=== PATIENT | female | born 1950 | race Caucasian/White ===

== ENCOUNTER 2022-01-17 11:56 | Emergency (ER) | payer MEDICARE, OTHER, SELFPAY ==
[2022-01-17] VITALS (11 sets, daily range): BP systolic 113–193; BP diastolic 85–108; PULSE 57–83; RESP 14–24; TEMP 36.6; O2SAT 90–100
--- NOTE | ~2022-01-17 | CT_ITS ---
EXAMINATION: CT brain wo con DATE: 01/17/2022 12:08 INDICATION: Cerebrovascular accident. Right facial weakness. TECHNIQUE: Computed tomography (CT) of the head was performed without intravenous contrast. The mA wa s adjusted according to patient size. Iterative reconstruction technique was employed. The dose-lengt h product was 605.33 mGy-cm. COMPARISON: None FINDINGS: There is no intracranial hemorrhage, acute infarction, or abnormal intracranial mass lesion . The ventricles are normal in size. There are likely changes of ocular lens replacement surgeries. T he paranasal sinuses are clear. The mastoid air cells are normal. IMPRESSION: 1. Normal brain. I called this result to Michelle in the emergency department. Reviewed, dictated and finalized at location A.
--- NOTE | ~2022-01-17 | XR_ITS ---
EXAMINATION: XR chest 1V portable INDICATION: Facial droop TECHNIQUE: Portable AP chest at 1237 hours COMPARISON: 07/17/2015 FINDINGS: The lungs are free of acute opacities. No pleural effusion or pneumothorax. The cardiomedia stinal silhouette is normal. IMPRESSION: 1. No acute cardiopulmonary abnormality. Reviewed, dictated and finalized at location A.
--- NOTE | 2022-01-17 12:03 | ECG_ITS ---
Measurements Intervals [place] Rate: 80 P: 64 WA: 311 QRS: -6 QRSD: 94 T: 13 QT: 403 QTc: 465 Interpretive Statements SINUS RHYTHM WITH FIRST DEGREE AV BLOCK SUPRAVENTRICULAR BIGEMINY LEFT VENTRICULAR HYPERTROPHY WITH ST-T CHANGE CONSIDER INFERIOR INFARCT, AGE INDETERMINATE ABNORMAL ECG NO PREVIOUS ECG AVAILABLE FOR COMPARISON Electronically Signed On 01-17-2022 14:35:34 CDT by Dony Matson D.O.
[2022-01-17 12:20] LABS: Glucose Point of Care 106 mg/dl (65-105)
[2022-01-17 12:29] LABS: Basophils Absolute Auto 0.1 K/mm3 (0.0-0.1); Eosinophils Absolute Auto 0.3 K/mm3 (0-0.3); Eosinophils Percent Auto 3.5 % (0-4.4); Hematocrit 44.5 % (37.0-47.0); Hemoglobin 14.5 g/dL (12.0-15.0); Immature Granulocyte Absolute 0.02 K/mm3 (0.00-0.031); Immature Granulocyte Percent A 0.3 % (0-0.5); Lymphocytes Absolute Auto 1.64 K/mm3 (0.9-3.2); Lymphocytes Percent Auto 21.2 % (18.3-44.2); Mean Corpuscular HGB Conc 32.6 g/dl (32-36); Mean Corpuscular Hemoglobin 31.4 pg (26-34); Mean Corpuscular Volume 96.3 fl (80-100); Mean Platelet Volume 10.2 fl (7.4-10.4); Monocytes Absolute Auto 0.8 K/mm3 (0.1-0.6); Neutrophils Absolute Auto 4.9 K/mm3 (1.3-6.7); Platelet Count Result 355 k/mm3 (150-375); Red Blood Count 4.62 M/mm3 (4.2-5.4); Red Cell Distribution Width 14.6 % (11.5-14.5); White Blood Count 7.7 K/mm3 (4.5-10.0)
[2022-01-17 12:38] LABS: Alanine Aminotransferase 30 U/L (6-35); Albumin Level 4.5 g/dL (3.5-5.1); Alkaline Phosphatase 136 U/L (38-126); Anion Gap 14 mmol/L (8-16); Aspartate Amino Transferase 35 U/L (14-36); Bilirubin,Total 0.6 mg/dL (0.2-1.3); Blood Urea Nitrogen 21 mg/dL (7-17); Calcium 9.4 mg/dL (8.4-10.2); Carbon Dioxide 30 mmol/L (22-30); Chloride 98 mmol/L (98-107); Estimated CRCL calculation 57 ml/min; Estimated Glomerular Filt Rate 55; Glucose 109 mg/dL (65-110); Potassium 3.7 mmol/L (3.4-5.0); Sodium 142 mmol/L (137-145)
[2022-01-17 12:40] LABS: Partial Thromboplastin Time 24.7 SECONDS (22.3-36.8); Prothrombin Time 12.7 Seconds (11.1-14.7)
[2022-01-17 12:50] LABS: Troponin I < 0.012 ng/mL (0.000-0.034)
--- NOTE | 2022-01-17 13:51 | ED.NEUROSD ---
HPI - Neuro Symptoms/Deficit General Chief Complaint: Suspected CVA Stated Complaint: walk up with facial droop Time Seen by Provider: 01/17/22 12:38 History of Present Illness HPI Narrative: 71-year-old female presenting to the emergency department for evaluation of right-sided facial numbness. Patient noticed this when she woke up this morning. Patient has no prior history of CVA. Patient denies any other associated numbness or weakness. Related Data Home Medications Medication Instructions Recorded Confirmed biotin 10,000 mcg capsule mcg PO 04/25/19 11/11/21 cyanocobalamin (vitamin B-12) 5,000 mcg sublingual DAILY 04/25/19 11/11/21 5,000 mcg sublingual tablet (Vitamin B-12) ranibizumab 0.3 mg/0.05 mL 0.3 mg intravitreal Q10W 02/05/21 11/11/21 intravitreal solution for injection (Lucentis) Lactobacills gasseri-Bifidobac cap PO ONCE PRN 02/06/21 11/11/21 bifidum,longum 1.5 billion cell capsule ([employer]) calcium carbonate 500 mg-vitamin 1 tablet PO BID 02/06/21 11/11/21 D3 5 mcg (200 unit) tablet krill oil 500 mg capsule mg PO ONCE 02/06/21 11/11/21 multivitamin 1 tablet PO DAILY 02/06/21 11/11/21 vit Q50-uzxyqxjhv factor-folic tablet PO ONCE 02/06/21 11/11/21 acid cmb#2 500 mcg-20 mg-800 mcg tablet (Intrinsi F00-[id number]) vit C 250 mg-vit E 90 mg-zinc 40 1 tablet PO BID 02/06/21 11/11/21 mg-copper 1 qz-fkltqv-hosagc capsule (PreserVision AREDS-2) Allergies Allergy/AdvReac Type Severity Reaction Status Date / Time Crab Allergy Severe SWOLLEN Uncoded 01/17/22 12:29 FACE STERI STRIP Allergy Unknown Other Uncoded 01/17/22 12:29 Review of Systems Review of Systems: CONSTITUTIONAL: Denies fever, chills, or sweats. EYES: Denies visual changes, redness, or discharge. ENT: Denies rhinorrhea, congestion, sore throat, or otalgia. CARDIOVASCULAR: Denies chest pain, palpitations, or edema. RESPIRATORY: Denies cough or dyspnea. GASTROINTESTINAL: Denies abdominal pain, nausea, vomiting, or diarrhea. GENITOURINARY: Denies dysuria or hematuria. SKIN: Denies rash or itching. MUSCULOSKELETAL: Denies back pain, joint pain, or myalgia. NEUROLOGIC: Right-sided facial numbness [facility] Past Medical History Medical History (Updated 01/18/22 @ 00:00 by Background Daemon) Absence of cataract of left eye After cataract, right eye Age-related macular degeneration Chronic renal insufficiency, stage III (moderate) Early onset macular degeneration Elevated blood pressure reading (~02/2013) Encounter for immunization Essential (primary) hypertension Mixed hyperlipidemia Obesity (BMI 30-39.9) Osteopenia Pre-diabetes Ulcerative colitis without complications Vitamin B12 deficiency Vitamin D deficiency Well woman exam (no gynecological exam) Surgical History Surgical History History of cholecystectomy (~10/1980) History of lumpectomy (~10/1997) History of tonsillectomy and adenoidectomy (~1961) History of total right knee replacement (~07/2015) History of tubal ligation Hx of colonoscopy (~07/2018) ulcerative colitis [place] teeth extracted (~1968) Family History Family History Father Hypertension Cerebrovascular accident Family history of lung cancer Family history of diabetes mellitus in first degree relative Family history of heart disease in male family member before age 55 Acute myocardial infarction Mother Family history of cardiovascular disease Acute myocardial infarction Social History Social History Smoking status: Former smoker Second hand tobacco smoke exposure: No Smoking end date: 05/18/83 Alcohol intake: current Substance use: never Substance use type: does not use Gender identity (if verbalized by the patient): Female Exam Narrative: APPEARANCE: Well appearing, no pain,
[2022-01-17] MEDS: ARTIFICIAL TEARS OPHTH SOLN 15 ML BOTTLE 1 DROP RIGHT EYE (14:22)
[2022-01-17] MEDS: valACYclovir HCL 500 MG TABLET 1000 MG PO (14:23)
[2022-01-17] MEDS: predniSONE 20 MG TABLET 60 MG PO (14:23)
== END 2022-01-17 14:35 | disposition home or self-care (01) ==
PROVIDERS: Emergency Provider Emergency Medicine; PCP Family Medicine
DX: G51.0 Bell's palsy (principal); I12.9 Hypertensive chronic kidney disease with stage 1 through stage 4 chronic kidney disease, or unspecified chronic kidney disease; N18.30 Chronic kidney disease, stage 3 unspecified; H35.30 Unspecified macular degeneration; E78.2 Mixed hyperlipidemia; M85.80 Other specified disorders of bone density and structure, unspecified site; E66.9 Obesity, unspecified; Z68.41 Body mass index [BMI] 40.0-44.9, adult; R73.03 Prediabetes; K51.90 Ulcerative colitis, unspecified, without complications; E53.8 Deficiency of other specified B group vitamins; E55.9 Vitamin D deficiency, unspecified; Z96.651 Presence of right artificial knee joint; Z87.891 Personal history of nicotine dependence; I44.0 Atrioventricular block, first degree; R00.8 Other abnormalities of heart beat; R94.31 Abnormal electrocardiogram [ECG] [EKG]; I51.7 Cardiomegaly
CPT/HCPCS: 36415; 70450; 71045; 80053; 82948; 84484; 85025; 85610; 85730; 93005; 99284; A9270; J7512

== ENCOUNTER 2022-03-04 08:31 | Outpatient (CLI) | payer MEDICARE, OTHER, SELFPAY ==
--- NOTE | 2022-03-04 08:47 | ECHO_ITS ---
Patient Info Name: Crissy Moreno Age: 71 years : 1950 Gender: Female Ht: 64 in Wt: 250 lbs BSA: 2.32 m2 HR: 72 bpm BP: 113 / 93 mmHg Technical Quality: Poor Exam Date: 03/04/2022 9:21 AM Exam Location: [facility] Patient Status: Outpatient Admit Date: 03/04/2022 Staff Ordering Physician: Dony Matson DO Court Recorder: Gallo Hawkins RDCS Attending Provider: Dony Matson DO Referring Physician: Dano SILVERMAN; Exam Type: CA echo doppler color flow Study Info Indications I10 - Essential (primary) hypertension Complete two-dimensional, color flow and Doppler transthoracic echocardiogram is performed. Summary 1. Complete two-dimensional, color flow and Doppler transthoracic echocardiogram is performed. 2. Technically suboptimal study due to poor sonographic images. 3. Ventricular septum is sigmoid shaped. No LVOT obstruction. 4. Left ventricular chamber dimension is normal. 5. Left ventricular systolic function is normal, estimated at 60-65%. 6. There is mildly increased left ventricular wall thickness. 7. The left ventricular diastolic function is grade I diastolic dysfunction. 8. E/e' 5 is not elevated. 9. There is mild aortic valve sclerosis. Left Ventricle E/e' 5 is not elevated. Technically suboptimal study due to poor sonographic images. Ventricular septum is sigmoid shaped. No LVOT obstruction. Left ventricular chamber dimension is normal. Left ventricular systolic function is normal, estimated at 60-65%. There is mildly increased left ventricular wall thickness. The left ventricular diastolic function is grade I diastolic dysfunction. Right Ventricle Right ventricular systolic function is normal and with normal TAPSE 2.3 cm. Right ventricular chamber dimension is normal. Left Atria Left atrial chamber dimension is normal. Right Atria Right atrial chamber dimension is normal. Aortic Valve The aortic valve is trileaflet. There is mild aortic valve sclerosis. There is no aortic valve stenosis. There is no aortic valve regurgitation. Pulmonic Valve There is no pulmonic regurgitation. Mitral Valve There is no mitral valve stenosis. There is no mitral valve regurgitation. Tricuspid Valve There is no tricuspid valve regurgitation. Pericardium/Pleural There is no pericardial effusion. Inferior Vena Cava Normal inferior vena cava with >50% collapse upon inspiration consistent with normal right atrial pressure, 5 mmHg. Aorta The aortic root size at the sinus of Valsalva is normal. Left Ventricular Outflow Tract Name Value Normal LVOT 2D LVOT Diameter 2.0 cm LVOT Doppler LVOT Peak Gradient 4 mmHg LVOT Mean Gradient 3 mmHg LVOT VTI 25 cm LVOT VTI/AV VTI Ratio 0.8 LVOT Stroke Volume 74 ml LVOT CO 15.4 l/min LVOT CI 6.6 l/min/m2 Mitral Valve Name
== END 2022-03-04 08:32 | disposition home or self-care (01) ==
LOC: ANHCARD 08:33
PROVIDERS: PCP Family Medicine; Visit Provider Internal Medicine Cardiovascular Disease
DX: I10 Essential (primary) hypertension (principal)
CPT/HCPCS: 93306

== ENCOUNTER 2022-05-13 08:10 | Outpatient (CLI) | payer MEDICARE, OTHER, SELFPAY ==
--- NOTE | 2022-05-15 15:35 | WPDSLEEPSTUD ---
Sleep Study Date of Study: 05/13/22 Ordering Provider: Dony Matson DO Interpreting Physician: Babita Parada MD Sleep Study Type: Split Polysomnogram Height: 1.63 m Weight: 121.109 kg Body Mass Index: 45.8 Neck Circumference (inches): 16 [place]: 7 Reason for Sleep Study Cardiac testing; 02/13/22; 28 days event monitor: Sinus rhythm, HR range 33-145 bpm; average 74 bpm; 33 bpm was on 03/02/22 at 04:48; 9% PAC's and 1% PVC's. 1 VT at 143 bpm lasting 19 beats on 02/26/22 at 14:58. 5 episodes of 2nd degree AV block, type I with slowest at 33 bpm between 00:36-04:29. 01/17/22 EKG: Sinus rhythm with first degree AV block, supraventricular bigeminy, LVH with ST-T changes. Sleep History Crissy Thomas is a 71-year-old female with irregular heartbeats during the night. She has not been aware of this, was informed by Dr Matson. She wakes at night to use the bathroom. She does not awaken from sleep feeling short of breath. She does not awaken at night with heartburn, belching or coughing. She lives alone, she is not sure if she snores. She rarely has trouble sleeping with a cold. She does not wake up gasping for breath at night. She does not sweat excessively at night or notice her heart pounding or beating irregularly at night. She occasionally falls asleep during the day. She does not fall asleep while driving. She does not have loss of muscle tone with strong emotion. She does not have daytime difficulties due to excessive sleepiness. She does not feel paralyzed on waking or falling asleep. She does not have vivid dreamlike scenes on waking or falling asleep. She does not feel afraid to go to sleep. She rarely has nightmares. She occasionally remembers her dreams. She does not have racing thoughts. She denies feeling sad depressed or anxious. She does not have muscular tension. She does not notice parts of her body jerking. She does not have crawling or aching feelings in her legs. She rarely has any kind of leg pain at night. She does not have morning jaw pain. She occasionally has arthritis in the knee. She does not awaken with pain during the night. She rarely wakes up feeling stiff in the morning. She does not wake up with sore achy muscles. She rarely wakes up with pain in the knee in the morning. She has ulcerative colitis. Her normal bedtime is 9:00 p.m. falling asleep within 5-10 minutes, typically waking once or not at all at night. When she wakes she goes to the bathroom or sometimes lets the dog outside. She is able to return to sleep quickly. Her normal wake time is between 4:00 a.m. and 4:30 a.m.. On weekends, her bedtime is a little later, 10:00 p.m. to 11:00 p.m.. She wakes between 5:00 a.m. and 6:00 a.m.. She estimates getting 7-8 hours of sleep at night. she occasionally takes naps in the afternoon. A short nap lasting 10 or 15 minutes may be restorative. She feels better in the morning compared to other times of day. Habits: Quit tobacco 38 years ago. Caffeine 1 cup of coffee and 1 diet soda daily. Rare alcohol. No recreational drugs. [facility] Past Medical History Medical History Absence of cataract of left eye After cataract, right eye Age-related macular degeneration Chronic renal insufficiency, stage III (moderate) Early onset macular degeneration Elevated blood pressure reading (~02/2013) Encounter for immunization Essential (primary) hypertension First degree heart block Mixed hyperlipidemia Obesity (BMI 30-39.9) Osteopenia Pre-diabetes Ulcerative colitis without complications Vitamin B12 deficiency Vitamin D deficiency Well woman exam (no gynecological exam) Surgical History Surgical History History of cholecystectomy (~10/1980) History of lumpectomy (~10/1997) History of tonsillectomy and adenoidectomy (~1961) History of total right knee replacement (~07/2015) History of tub
[2022-05-15 15:53] VITALS: BMI 45.8
== END 2022-05-14 05:23 | disposition home or self-care (01) ==
LOC: ANHCSM 08:12
PROVIDERS: PCP Family Medicine; Visit Provider Internal Medicine Cardiovascular Disease
DX: G47.10 Hypersomnia, unspecified (principal); G47.33 Obstructive sleep apnea (adult) (pediatric)
CPT/HCPCS: 95811

== ENCOUNTER 2023-01-23 03:06 | Day surgery (SDC) | payer MEDICARE, OTHER, SELFPAY ==
[2023-01-07 13:34] VITALS: BMI 44.6
[2023-01-23 06:19] VITALS: BP 143/86; RESP 20; TEMP 36.3; O2SAT 96; BMI 43.6
[2023-01-23] MEDS: LACTATED RINGERS 1,000 ML 150 ML IV CONT (06:23)
--- NOTE | 2023-01-23 07:22 | WPDANESEPPF ---
Anes - Initial Pre Proc Eval Procedure: Operation Date: 01/23/23 07:30 Proposed Procedures p Colonoscopy - Lexa Newell MD Date/Time: 01/23/23 07:22 Surgeon: Lexa Newell MD Pre Op Diagnosis: ulcerative colitis Patient Data Age: 72 Gender: F Height: 1.63 m Weight: 115.3 kg Last Vital Signs Temp 97.3 F L 01/23/23 06:19 Resp 20 01/23/23 06:19 BP 143/86 H 01/23/23 06:19 Pulse Ox 96 01/23/23 06:19 O2 Del Method Room Air 01/23/23 06:19 Allergies Allergy/AdvReac Type Severity Reaction Status Date / Time No Known Allergies Allergy Verified 01/23/23 06:18 Home Medications Medication Instructions Recorded Confirmed Type biotin 10,000 mcg capsule 1 mcg PO DAILY 04/25/19 01/23/23 History cyanocobalamin (vitamin B-12) 5,000 mcg sublingual DAILY 04/25/19 01/23/23 History 5,000 mcg sublingual tablet (Vitamin B-12) ranibizumab 0.3 mg/0.05 mL 0.3 mg intravitreal Q10W 02/05/21 01/23/23 History intravitreal solution for injection (Lucentis) Lactobacills gasseri-Bifidobac 1 cap PO ONCE 02/06/21 01/23/23 History bifidum,longum 1.5 billion cell capsule ([employer]) calcium carbonate 500 mg-vitamin 1 tablet PO BID 02/06/21 01/23/23 History D3 5 mcg (200 unit) tablet multivitamin 1 tablet PO DAILY 02/06/21 01/23/23 History vit C 250 mg-vit E 90 mg-zinc 40 1 tablet PO BID 02/06/21 01/23/23 History mg-copper 1 fl-dkgqax-ojnszo capsule (PreserVision AREDS-2) magnesium chloride 71.5 mg 71.5 mg PO BID 02/13/22 01/23/23 History (magnesium chloride) tablet,delayed release (Slow-Mag) carvedilol 12.5 mg tablet 6.25 mg PO Q12H #180 tabs 03/16/22 01/23/23 Rx furosemide 40 mg tablet 40 mg PO DAILY #90 tabs 07/08/22 01/23/23 Rx omega 2-vhs-yxk-fish oil 1,000 mg 1 cap PO DAILY 08/12/22 01/23/23 History (120 mg-180 mg) capsule (Fish Oil) losartan 25 mg tablet 25 mg PO DAILY #90 tabs 11/02/22 01/23/23 Rx mesalamine 1.2 gram tablet,delayed 2.4 g PO DAILY #180 tabs 12/17/22 01/23/23 Rx release folic acid 800 mcg tablet 0.8 mg PO DAILY 01/07/23 01/23/23 History potassium chloride 20 mEq 20 meq PO DAILY 01/07/23 01/23/23 History tablet,extended release Patient hx anesthesia problems: none Family hx anesthesia problems: none Results Review: All pre-operative results and documents have been reviewed as part of the pre-operative evaluation. [facility] Past Medical History Medical History Absence of cataract of left eye After cataract, right eye Age-related macular degeneration Chronic renal insufficiency, stage III (moderate) Early onset macular degeneration Elevated blood pressure reading (~02/2013) Encounter for immunization Essential (primary) hypertension First degree heart block Mixed hyperlipidemia Obesity (BMI 30-39.9) Osteopenia Pre-diabetes Ulcerative colitis without complications Vitamin B12 deficiency Vitamin D deficiency Well woman exam (no gynecological exam) Surgical History Surgical History History of cholecystectomy (~10/1980) History of lumpectomy (~10/1997) History of tonsillectomy and adenoidectomy (~1961) History of total right knee replacement (~07/2015) History of tubal ligation Hx of colonoscopy (~07/2018) ulcerative colitis [place] teeth extracted (~1968) Family History Family History Father Hypertension Cerebrovascular accident Family history of lung cancer Family history of diabetes mellitus in first degree relative Family history of heart disease in male family member before age 55 Acute myocardial infarction Mother Family history of cardiovascular disease Acute myocardial infarction Social History Social History Smoking packs per day: 0.5 Smoking cigarettes per day
--- NOTE | 2023-01-23 07:30 | PM.HPGS ---
History of Present Illness History of Present Illness Consent: Risks, benefits, and alternatives have been discussed and questions answered. Patient agrees to proceed with procedure. Chief complaint: ulcerative colitis Narrative: Crissy Thomas is a 72 year old female Presents for screening colonoscopy. Patient's current weight appetite and bowel movements are normal. Patient denies abdominal pain. She has had no bleeding. Family history noncontributory. Patient has a history of ulcerative colitis. Currently and felt to be in remission. Patient takes Lialda 2.4g p.o. daily. Most recent colonoscopy 2018 revealed colitis to be in endoscopic remission. Family history is noncontributory. Review of Systems Review of Systems: Physical exam reveals patient to be alert. Vital signs stable. HEENT exam is unremarkable. Patient is anicteric. Lungs are clear to auscultation and percussion. Heart is without murmur or extra sounds. Abdomen bowel sounds are present soft nontender with no organomegaly. Digital external rectal exam is normal. PENDING SALE TO [facility] Past Medical History Medical History Absence of cataract of left eye After cataract, right eye Age-related macular degeneration Chronic renal insufficiency, stage III (moderate) Early onset macular degeneration Elevated blood pressure reading (~02/2013) Encounter for immunization Essential (primary) hypertension First degree heart block Mixed hyperlipidemia Obesity (BMI 30-39.9) Osteopenia Pre-diabetes Ulcerative colitis without complications Vitamin B12 deficiency Vitamin D deficiency Well woman exam (no gynecological exam) Surgical History Surgical History History of cholecystectomy (~10/1980) History of lumpectomy (~10/1997) History of tonsillectomy and adenoidectomy (~1961) History of total right knee replacement (~07/2015) History of tubal ligation Hx of colonoscopy (~07/2018) ulcerative colitis [place] teeth extracted (~1968) Family History Family History Father Hypertension Cerebrovascular accident Family history of lung cancer Family history of diabetes mellitus in first degree relative Family history of heart disease in male family member before age 55 Acute myocardial infarction Mother Family history of cardiovascular disease Acute myocardial infarction Social History Social History Smoking packs per day: 0.5 Smoking cigarettes per day: 10.0 Years smoked: 14 Smoking pack-years: 7.00 Smoking status: Former smoker Tobacco type: cigarettes Second hand tobacco smoke exposure: No Smoking end date: 05/18/83 Alcohol intake: never Alcohol use details: RARE Substance use: never Substance use type: does not use Lack of Transportation: No Lack of Food: Never True Current Housing: I Have Housing Concerned About Future Housing: No Difficulty Paying Gas/Electric Bills: No Difficulty Paying for Meds: No Currently Unemployed: No Education: Associate Degree Difficulty w/ Childcare or Family Care: No Living arrangements: with family Additional living arrangements comments: daughter Occupation/Education: retired Gender identity (if verbalized by the patient): Female Spiritual care concerns: No Agree to blood products: Yes Meds Home Medications and Allergies Home Medications Medication Instructions Recorded Confirmed Type biotin 10,000 mcg capsule 1 mcg PO DAILY 04/25/19 01/23/23 History cyanocobalamin (vitamin B-12) 5,000 mcg sublingual DAILY 04/25/19 01/23/23 History 5,000 mcg sublingual tablet (Vitamin B-12) ranibizumab 0.3 mg/0.05 mL 0.3 mg intravitreal Q10W 02/05/21 01/23/23 History intravitreal solution for injection (Lucentis) Lactobacill
[2023-01-23 07:52] VITALS: BP 88/51; PULSE 62; RESP 22; O2SAT 93
[2023-01-23 08:01] VITALS: BP 100/56; PULSE 81; RESP 18; O2SAT 93
[2023-01-23 08:11] VITALS: BP 114/62; PULSE 64; RESP 18; O2SAT 64
== END 2023-01-23 08:20 | disposition home or self-care (01) ==
PROVIDERS: PCP Family Medicine; Visit Provider Internal Medicine Gastroenterology
PROC: 0DJD8ZZ Inspection of Lower Intestinal Tract, Via Natural or Artificial Opening Endoscopic (ICD-10-PCS; CPT 45378; principal; 2023-01-23 07:30)
DX: K51.90 Ulcerative colitis, unspecified, without complications (principal); K64.8 Other hemorrhoids; I12.9 Hypertensive chronic kidney disease with stage 1 through stage 4 chronic kidney disease, or unspecified chronic kidney disease; N18.30 Chronic kidney disease, stage 3 unspecified; E78.2 Mixed hyperlipidemia; I44.0 Atrioventricular block, first degree; R73.03 Prediabetes; E55.9 Vitamin D deficiency, unspecified; E53.8 Deficiency of other specified B group vitamins; Z87.891 Personal history of nicotine dependence; E66.01 Morbid (severe) obesity due to excess calories; Z68.41 Body mass index [BMI] 40.0-44.9, adult; Z79.620 Long term (current) use of immunosuppressive biologic
CPT/HCPCS: 45380; 88305; J2704; J7120

== ENCOUNTER → 2023-03-12 13:13 | Outpatient (CLI) | payer MEDICARE, OTHER, SELFPAY ==
--- NOTE | ~2023-03-12 | DEXA_ITS ---
Bone Density Report Name: DALILA FREGOSO Age: 72 Sex: Female Ethnicity: White Date of : 1950 Indication: postmenopausal; screening for osteoporosis; inflammatory bowel disease; Referring Provider: AVA BLAKE Study: Bone densitometry was performed. Exam Date: March 12, 2023 Accession number: [id number] Bone Density: Region BMD T-score Z-score Classification AP Spine (L1-L4) 1.028 -0.2 2.0 Normal Femoral Neck (Left) 0.680 -1.5 0.4 Osteopenia Total Hip (Left) 0.873 -0.6 1.0 Normal Femoral Neck (Right) 0.731 -1.1 0.8 Osteopenia Total Hip (Right) 0.865 -0.6 1.0 Normal Total Hip Mean 0.869 -0.6 1.0 Normal World Health Organization criteria for BMD impression classify patients as: Normal (T-score at or above -1.0), Osteopenia (T-score between -1.0 and -2.5), or Osteoporosis (T-score at or below -2.5). 10-year Fracture Risk(1): Major Osteoporotic Fracture 8.8% Hip Fracture 1.3% Reported Risk Factors: [place] (), Neck BMD=0.680, BMI=44.6 (1) FRAX(R) Version 3.08. Fracture probability calculated for an untreated patient. Fracture probability may be lower if the patient has received treatment. Previous Exams: Region Exam Age BMD T-score BMD Change BMD Change Date g/cm2 vs Baseline vs Previous AP Spine(L1-L4) 03/12/2023 72 1.028 -0.2 0.087* 0.087* 04/29/2019 68 0.941 -1.0 Total Hip(Left) 03/12/2023 72 0.873 -0.6 0.050* 0.050* 04/29/2019 68 0.823 -1.0 Total Hip(Right) 03/12/2023 72 0.865 -0.6 0.049* 0.049* 04/29/2019 68 0.816 -1.0 *Denotes significance at 95% confidence level, LSC for AP Spine = 0.022 g/cm2, LSC for Total Hip = 0.027 g/cm2 Clinical Information Provided by Patient: Has used the following medications: Vitamin D, Calcium, MTV Has the following medical conditions: Inflammatory bowel diseases Patient maximum height was 64.0 Menopause Age: 48 No regular weight bearing exercise Does not regularly consume dairy products Drinks caffeinated beverages Onset of menses at age 14 Number of children 3 Impression: The patient has low bone mass, based on the Left Femoral Neck T-score. The patient has an estimated ten-year risk of hip fracture of 1.3% and an estimated ten-year risk of major fracture of 8.8%, based on the WHO FRAX algorithm. No significant bone loss was observed. Discussion: BONE DENSITY IS LOW AT ONE OR MORE SKELETAL SITES.
--- NOTE | ~2023-03-12 | MM_ITS ---
EXAMINATION: MM screening debbi BI w gonzalo HISTORY: Screening mammogram TECHNIQUE: Craniocaudal and mediolateral oblique 3-D tomosynthesis images were obtained and synthetic 2-D images were generated. CAD analysis was submitted and interpreted. COMPARISON: 05/20/2019 diagnostic right mammogram and limited right breast ultrasound 04/29/2019 bilateral screening mammogram BREAST PARENCHYMAL COMPOSITION: There are scattered areas of fibroglandular density. FINDINGS: Stable approximately 4 mm mass again noted in the upper outer right breast, previously docu mented as a cyst on 05/20/2019 right breast ultrasound examination. There is no evidence of suspicious mass, calcification, or architectural distortion to suggest malignancy in either breast. There has be en no suspicious interval change. IMPRESSION: 1. No mammographic evidence of malignancy. 2. Recommend routine screening mammography in one year. BI-RADS Category 2: Benign finding(s). Reviewed, dictated and finalized at location A.
== END ==
PROVIDERS: PCP Family Medicine; Visit Provider Family Medicine
DX: Z12.31 Encounter for screening mammogram for malignant neoplasm of breast (principal); Z78.0 Asymptomatic menopausal state; M85.89 Other specified disorders of bone density and structure, multiple sites
CPT/HCPCS: 77063; 77067; 77080

== ENCOUNTER 2024-02-26 09:48 | Emergency (ER) | payer MEDICARE, OTHER, SELFPAY ==
[2024-02-26 10:00] VITALS: BP 106/57; PULSE 68; RESP 16; TEMP 36.4; O2SAT 98
--- NOTE | 2024-02-26 10:07 | ED.FALL ---
HPI - Fall General Chief Complaint: Fall Stated Complaint: fall Time Seen by Provider: 02/26/24 10:07 Source: patient Mode of arrival: ambulatory Limitations: no limitations History of Present Illness HPI Narrative: 73 y/o female presented for c/o pain and decreased range of motion to the left shoulder following an injury last night. States she was pulled to the ground by a large dog while holding its leash. Pt reports pain to left shoulder when trying to reach over head, she is able to tolerate lateral raise to 90 degrees. Denies any shoulder pain at rest, and says the pain is better today than last night. Reports mild right knee pain, right hand bruising, and bruising to the right forehead. Denies LOC. Denies headache, dizziness or vision changes. Denies pain radiating down the arm, numbness, tingling or weakness of the extremities. Pt is ambulating without difficulty. Hx right TKR. Took ibuprofen last night and this morning. Related Data Home Medications Medication Instructions Recorded Confirmed biotin 10,000 mcg capsule 1 mcg PO DAILY 04/25/19 02/26/24 cyanocobalamin (vitamin B-12) 5,000 mcg sublingual DAILY 04/25/19 02/26/24 5,000 mcg sublingual tablet (Vitamin B-12) ranibizumab 0.3 mg/0.05 mL 0.3 mg intravitreal Q10W 02/05/21 02/26/24 intravitreal solution for injection (Lucentis) Lactobacills gasseri-Bifidobac 1 cap PO ONCE 02/06/21 02/26/24 bifidum,longum 1.5 billion cell capsule ([facility]) calcium 500 mg (as 1 tablet PO BID 02/06/21 02/26/24 carbonate)-vitamin D3 5 mcg (200 unit) tablet multivitamin 1 tablet PO DAILY 02/06/21 02/26/24 vit C 250 mg-vit E 90 mg-zinc 40 1 tablet PO BID 02/06/21 02/26/24 mg-copper 1 pa-ikslyn-ccumvc capsule (PreserVision AREDS-2) magnesium chloride 71.5 mg 71.5 mg PO BID 02/13/22 02/26/24 (magnesium chloride) tablet,delayed release (Slow-Mag) folic acid 800 mcg tablet 0.8 mg PO DAILY 01/07/23 02/26/24 omega 6-sig-gzk-fish oil 1,000 mg 2 cap PO DAILY 02/13/23 02/26/24 (120 mg-180 mg) capsule (Fish Oil) Allergies Allergy/AdvReac Type Severity Reaction Status Date / Time No Known Allergies Allergy Verified 02/12/24 11:35 Review of Systems Review of Systems: CONSTITUTIONAL: Denies body aches, fever, chills EYES: Denies visual changes ENT: Denies rhinorrhea, epistaxis CARDIOVASCULAR: Denies chest pain, palpitations, or edema. RESPIRATORY: Denies cough or dyspnea. GASTROINTESTINAL: Denies abdominal pain, nausea, vomiting SKIN: reports bruising right hand MUSCULOSKELETAL: reports left shoulder pain and decreased ROM, right knee mild pain NEUROLOGIC: Denies headache, numbness, tingling, or weakness. All systems reviewed & are unremarkable except as noted in HPI and below PMFSH Past Medical History Medical History Absence of cataract of left eye After cataract, right eye Age-related macular degeneration Chronic renal insufficiency, stage III (moderate) Early onset macular degeneration Elevated blood pressure reading (~02/2013) Encounter for immunization Essential (primary) hypertension First degree heart block Mixed hyperlipidemia Obesity (BMI 30-39.9) Osteopenia Pre-diabetes Ulcerative colitis without complications Vitamin B12 deficiency Vitamin D deficiency Well woman exam (no gynecological exam) Surgical History Surgical History History of cholecystectomy (~10/1980) History of lumpectomy (~10/1997) History of tonsillectomy and adenoidectomy (~1961) History of total right knee replacement (~07/2015) History of tubal ligation Hx of colonoscopy (~07/2018) ulcerative colitis [place] teeth extracted (~1968) Family History Family History Father Hypertension Cerebrovascular accident Family history of lung cancer Family history of diabetes mellitus in fi
== END 2024-02-26 10:28 | disposition home or self-care (01) ==
PROVIDERS: Emergency Provider Nurse Practitioner Family; PCP Family Medicine
DX: M25.512 Pain in left shoulder (principal); M25.561 Pain in right knee; Z87.891 Personal history of nicotine dependence; I12.9 Hypertensive chronic kidney disease with stage 1 through stage 4 chronic kidney disease, or unspecified chronic kidney disease; N18.30 Chronic kidney disease, stage 3 unspecified; H35.30 Unspecified macular degeneration; E78.2 Mixed hyperlipidemia; M85.80 Other specified disorders of bone density and structure, unspecified site; R73.03 Prediabetes; E53.8 Deficiency of other specified B group vitamins; E55.9 Vitamin D deficiency, unspecified; Z96.651 Presence of right artificial knee joint
CPT/HCPCS: 99212; G0463

== ENCOUNTER 2024-03-01 15:07 | Outpatient (CLI) | payer MEDICARE, OTHER, SELFPAY ==
--- NOTE | ~2024-03-01 | XR_ITS ---
EXAMINATION: XR knee RT 3V DATE: 03/01/2024 15:46 INDICATION: Right knee pain. TECHNIQUE: 3 views of right knee including standing views were obtained. COMPARISON: Right knee radiographs 07/30/2015 FINDINGS: There is a total right knee arthroplasty with patellar resurfacing in near-anatomic alignme nt. There are lucent lines of the medial and lateral femoral condyles. No periprosthetic lucency to s uggest loosening or infection. No knee joint effusion. IMPRESSION: 1. Total right knee arthroplasty in near-anatomic alignment. 2. Lucent lines in the medial and lateral tibial condyles suspicious for nondisplaced periprosthetic fracture. Reviewed, dictated and finalized at location A. IMPRESSION: 1. Total right knee arthroplasty in near-anatomic alignment. 2. Lucent lines in the medial and lateral tibial condyles suspicious for nondis placed periprosthetic fracture.
--- NOTE | ~2024-03-01 | XR_ITS ---
EXAMINATION: XR shoulder LT min 2V DATE: 03/01/2024 15:46 INDICATION: Left shoulder pain. Fall. TECHNIQUE: 3 views of left shoulder were obtained. COMPARISON: None. FINDINGS: Bone alignment is normal. There is a nondisplaced fracture of anteroinferior glenoid. There is mild osteoarthritis of glenohumeral joint and acromioclavicular joint. IMPRESSION: 1. Nondisplaced fracture of anteroinferior glenoid. 2. Mild polyarticular osteoarthritis. Reviewed, dictated and finalized at location A.
--- NOTE | ~2024-03-01 | XR_ITS ---
XR ribs RT 2V w CXR 2V Ordering provider: Elina Garcia MD History: . R07.89 - Other chest pain ANTERIOR CHEST PAIN AFTER FALL . Comparison: January 17, 2022 FINDINGS: BONES: No acute rib fracture. MEDIASTINUM: The cardiac silhouette is not enlarged. LUNGS: No infiltrates, effusions or pneumothorax. Prominent bronchovascular markings in the right lower lobe. OTHER: No free air under the diaphragm. Degenerative changes of the spine. IMPRESSION: 1. No right rib fracture . 2. No acute cardiopulmonary findings. Reviewed, dictated and finalized at location A.
== END 2024-03-01 15:08 | disposition home or self-care (01) ==
PROVIDERS: PCP Family Medicine; Visit Provider Family Medicine
DX: M25.561 Pain in right knee (principal); R07.89 Other chest pain; M19.012 Primary osteoarthritis, left shoulder
CPT/HCPCS: 71046; 71100; 73030; 73562

== ENCOUNTER 2024-04-04 09:13 | Emergency (ER) | payer MEDICARE, OTHER, SELFPAY ==
--- NOTE | ~2024-04-04 | XR_ITS ---
XR chest 2V Ordering provider: SHAKIR Felix History: 73 years Female with . cough x3 days, low pulse ox . Comparison: None. FINDINGS: MEDIASTINUM: The cardiac silhouette is not enlarged. LUNGS: No effusions or pneumothorax. Opacification in the left lower lobe area suggestive of atelecta sis versus pneumonia. Follow-up advised. Prominent bronchovascular markings in the right lower lobe w hich may indicate atelectasis versus early pneumonia. OTHER: No free air under the diaphragm. IMPRESSION: Left lower lobe atelectasis versus pneumonia. Reviewed, dictated and finalized at location A. [employer] INSURANCE COORDINATOR
[2024-04-04 09:25] VITALS: BP 98/64; PULSE 70; RESP 18; TEMP 37.2; O2SAT 93
--- NOTE | 2024-04-04 10:19 | ED_ITS ---
HPI - URI/Sore Throat General Chief Complaint: Upper Respiratory Infection Stated Complaint: swab for numerous things Time Seen by Provider: 04/04/24 09:33 Source: patient and RN notes reviewed Mode of arrival: ambulatory Limitations: no limitations History of Present Illness HPI Narrative: Patient presents today complaining of 3 day history of dry cough and rhinorrhea. Denies chest pain, shortness of breath, fever. She has been taking Mucinex without relief. Last week she was exposed to a grandson she was baby-sitting twice that was diagnosed with pneumonia. Denies history of asthma or COPD. She quit smoking 30 years ago. Related Data Home Medications Medication Instructions Recorded Confirmed biotin 10,000 mcg capsule 1 mcg PO DAILY 04/25/19 04/04/24 ranibizumab 0.3 mg/0.05 mL 0.3 mg intravitreal Q10W 02/05/21 04/04/24 intravitreal solution for injection ([facility]) Lactobacills gasseri-Bifidobac 1 cap PO ONCE 02/06/21 04/04/24 bifidum,longum 1.5 billion cell capsule ([facility]) calcium 500 mg (as 1 tablet PO BID 02/06/21 04/04/24 carbonate)-vitamin D3 5 mcg (200 unit) tablet multivitamin 1 tablet PO DAILY 02/06/21 04/04/24 vit C 250 mg-vit E 90 mg-zinc 40 1 tablet PO BID 02/06/21 04/04/24 mg-copper 1 [id number]-jvphtm-yqcoyj capsule (PreserVision AREDS-2) magnesium chloride 71.5 mg 71.5 mg PO BID 02/13/22 04/04/24 (magnesium chloride) tablet,delayed release (Slow-Mag) folic acid 800 mcg tablet 0.8 mg PO DAILY 01/07/23 04/04/24 omega 7-dnz-dgb-fish oil 1,000 mg 2 cap PO DAILY 02/13/23 04/04/24 (120 mg-180 mg) capsule (Fish Oil) Allergies Allergy/AdvReac Type Severity Reaction Status Date / Time No Known Allergies Allergy Verified 04/04/24 09:28 Review of Systems Review of Systems: CONSTITUTIONAL: Denies body aches, fever, chills, or sweats. EYES: Denies visual changes, redness, or discharge. ENT: Denies congestion, sore throat, or otalgia.+ rhinorrhea CARDIOVASCULAR: Denies chest pain, palpitations, or edema. RESPIRATORY: Denies dyspnea.+ cough GASTROINTESTINAL: Denies abdominal pain, nausea, vomiting, or diarrhea. GENITOURINARY: Denies dysuria or hematuria. SKIN: Denies rash, itching, or wounds. MUSCULOSKELETAL: Denies back pain, joint pain, or myalgia. NEUROLOGIC: Denies headache, numbness, tingling, or weakness. PSYCH: Denies depression or anxiety. [facility] Past Medical History Medical History Absence of cataract of left eye After cataract, right eye Age-related macular degeneration Chronic renal insufficiency, stage III (moderate) Early onset macular degeneration Elevated blood pressure reading (~02/2013) Encounter for immunization Essential (primary) hypertension First degree heart block Mixed hyperlipidemia Obesity (BMI 30-39.9) Osteopenia Pre-diabetes Ulcerative colitis without complications Vitamin B12 deficiency Vitamin D deficiency Well woman exam (no gynecological exam) Surgical History Surgical History History of cholecystectomy (~10/1980) History of lumpectomy (~10/1997) History of tonsillectomy and adenoidectomy (~1961) History of total right knee replacement (~07/2015) History of tubal ligation Hx of colonoscopy (~07/2018) ulcerative colitis [place] teeth extracted (~1968) Family History Family History Father Hypertension Cerebrovascular accident Family history of lung cancer Family history of diabetes mellitus in first degree relative Family history of heart disease in male family member before age 55 Acute myocardial infarction Mother Family history of cardiovascular disease Acute myocardial infarction Social History Social History Smoking packs per day: 0.5 Smoking cigarettes per day: 10.0 Years smoked: 14 Smoking pack-years: 7.00 Smoking status: Former smoker Tobacco type: cigarettes Second hand tobacco smoke exposure: No Smoking end date: 05/18/83 Alcohol intake: never Alcohol use details: RARE Substance use: never Substance use type: does not use Do You Feel Safe in your Home?: Yes Lack of Transportation: No Lack of Food: Never True Current Housing: I Have Housing Concerned About Future Housing: No Difficulty Paying Gas/Electric Bills: No Difficulty Paying for Meds: No Currently Unemployed: No Education: Decline to Answer Difficulty w/ Childcare or Family Care: No Living arrangements: with family Additional living arrangements comments: daughter Occupation/Education: retired Gender identity (if verbalized by the patient): Female Spiritual care concerns: No Agree to blood products: Yes Comments At time of signature, I have reviewed and agree with nursing past medical, surgical, social and family history unless otherwise noted. Please see nursing chart for further information. There is no relevant family history pertinent to the presenting complaint Exam Narrative: GENERAL: Well-appearing, well-nourished, and in no acute distress. HEAD: Normocephalic, atraumatic. EYES: EOMI. No redness or drainage. Conjunctivae normal. ENT: Mucous membranes pink and moist. Nares clear. No rhinorrhea. TMs normal bilaterally. Throat normal. Uvula midline. NECK: Normal AROM. Supple. No lymphadenopathy. CHEST: No respiratory distress. Clear to auscultation. HEART: Regular rate and rhythm. No murmur appreciated. EXTREMITIES: Normal range of motion. No edema. SKIN: Warm, dry, no rash. Capillary refill normal. Normal skin turgor. NEURO: No focal deficits. Alert and oriented x3. Gait steady. PSYCH: Normal affect. No signs of depression or anxiety. Course Course Level of Care: Express Care Visit Vital Signs Vital signs: Vital Signs Temperature 98.9 F 04/04/24 09:25 Pulse Rate 70 04/04/24 09:25 Respiratory Rate 18 04/04/24 09:25 Blood Pressure 98/64 L 04/04/24 09:25 Pulse Oximetry 93 04/04/24 09:25 Oxygen Delivery Room Air 04/04/24 09:25 Temperature 98.9 F 04/04/24 09:25 Pulse Rate 70 04/04/24 09:25 Respiratory Rate 18 04/04/24 09:25 Blood Pressure 98/64 L 04/04/24 09:25 Pulse Oximetry 93 04/04/24 09:25 Oxygen Delivery Room Air 04/04/24 09:25 Reviewed MDM - URI/Sore Throat MDM Narrative Medical decision making narrative: Chest x-ray was ordered due to patient's cough and low pulse ox upon arrival. Chest x-ray shows possible left lower lobe pneumonia. Patient will be started on Augmentin and azithromycin. Anticipatory guidance given. ED precautions given. Differential Diagnosis Differential diagnosis: Likely upper respiratory infection, bronchitis and other (Pneumonia) Imaging Data Radiologist's impression: ITS Impressions Chest X-Ray 04/04/24 09:57 IMPRESSION: Left lower lobe atelectasis versus pneumonia. Critical Care Time Critical Care Time Critical Care Time: No Discharge Plan Discharge Clinical Impression: Pneumonia Qualifiers: Pneumonia type: due to unspecified organism Laterality: left Lung location: lower lobe of lung Qualified Code(s): J18.9 - Pneumonia, unspecified organism Patient Disposition: Home, Self-Care Condition: Stable Instructions: Antibiotic Form, Community Acquired Pneumonia (DC) Additional Instructions: Your x-ray shows developing pneumonia. Please take the Augmentin and azithromycin as directed. Continue Mucinex during the day. At night if needed, take a cough suppressant such as Mucinex DM or Robitussin DM. Follow-up with your PCP with any concerns. As discussed, please go to the ER immediately with any worsening symptoms such as shortness of breath, chest pain, or development of new fever greater than 100.3. Prescriptions: New azithromycin 250 mg tablet 250 mg PO DAILY Qty: 6 0RF Rx Instructions: take 500 mg today (day 1), then 250 mg daily on days 2-5. amoxicillin-pot clavulanate 875-125 mg tablet 1 tablet PO Q12H 5 Days Qty: 10 0RF No Action calcium carbonate-vitamin D3 500 mg(1,250mg) -200 unit tablet 1 tablet PO BID multivitamin Tablet 1 tablet PO DAILY [facility] 1.5 billion cell capsule 1 cap PO ONCE PreserVision AREDS-2 250-90-40-1 mg capsule 1 tablet PO BID Zepbound 2.5 mg/0.5 mL pen injector 2.5 mg subcut WEEKLY Qty: 2 0RF Rx Instructions: for 4 weeks biotin 10,000 mcg capsule 1 mcg PO DAILY [facility]is 0.3 mg/0.05 mL solution 0.3 mg intravitreal Q10W Slow-Mag 71.5 mg tablet,delayed release (DR/EC) 71.5 mg PO BID omega 5-fdf-cop-fish oil [Fish Oil] 1,000 mg (120 mg-180 mg) capsule 2 cap PO DAILY carvedilol 12.5 mg tablet 6.25 mg PO Q12H Qty: 180 1RF Rx Instructions: must administer with a meal/food furosemide 40 mg tablet 40 mg PO DAILY Qty: 90 1RF losartan 25 mg tablet 25 mg PO DAILY Qty: 90 1RF mesalamine 1.2 gram tablet,delayed release (DR/EC) 2.4 g PO DAILY Qty: 180 4RF folic acid 800 mcg Tablet 0.8 mg PO DAILY potassium chloride 20 mEq tablet extended release 20 meq PO DAILY Qty: 90 1RF Follow-up/Referrals: Elina Garcia MD [Primary Care Provider] - Time of Disposition: 10:23
== END 2024-04-04 10:27 | disposition home or self-care (01) ==
PROVIDERS: Emergency Provider Nurse Practitioner; PCP Family Medicine
DX: J18.1 Lobar pneumonia, unspecified organism (principal); Z87.891 Personal history of nicotine dependence; I12.9 Hypertensive chronic kidney disease with stage 1 through stage 4 chronic kidney disease, or unspecified chronic kidney disease; N18.30 Chronic kidney disease, stage 3 unspecified; E78.2 Mixed hyperlipidemia; R73.03 Prediabetes; E55.9 Vitamin D deficiency, unspecified; H35.30 Unspecified macular degeneration; M85.80 Other specified disorders of bone density and structure, unspecified site; E66.9 Obesity, unspecified; Z68.41 Body mass index [BMI] 40.0-44.9, adult; Z96.651 Presence of right artificial knee joint; Z98.42 Cataract extraction status, left eye
CPT/HCPCS: 71046; 99213; G0463

== ENCOUNTER 2024-06-30 10:36 | Outpatient (CLI) | payer MEDICARE, OTHER, SELFPAY ==
--- NOTE | ~2024-06-30 | MM_ITS ---
EXAMINATION: MM screening [facility] BI w gonzalo HISTORY: Screening TECHNIQUE: Craniocaudal and mediolateral oblique 3-D tomosynthesis images were obtained and synthetic 2-D images were generated. CAD analysis was submitted and interpreted. COMPARISON: Comparison to multiple prior studies sequentially, with oldest reviewed study dated 04/17. BREAST PARENCHYMAL COMPOSITION: Not dense: There are scattered areas of fibroglandular density. FINDINGS: There is a small mass in the upper outer quadrant of the right breast, previously character ized as a cyst by ultrasound. There is no evidence of suspicious mass, calcification, or architectura l distortion to suggest malignancy in either breast. There has been no suspicious interval change. IMPRESSION: 1. No mammographic evidence of malignancy. 2. Recommend routine screening mammography in one year. BI-RADS Category 2: Benign finding(s). Reviewed, dictated and finalized at location B. NURSE
== END 2024-06-30 10:37 | disposition home or self-care (01) ==
LOC: MICIMG 10:38
PROVIDERS: PCP Family Medicine; Visit Provider Student in an Organized Health Care Education/Training Program
DX: Z12.31 Encounter for screening mammogram for malignant neoplasm of breast (principal)
CPT/HCPCS: 77063; 77067

== ENCOUNTER 2025-03-16 08:45 | Outpatient (CLI) | payer MEDICARE, OTHER, SELFPAY ==
--- NOTE | ~2025-03-16 | DEXA_ITS ---
Bone Density Report Name: DALILA FREGOSO Age: 74 Sex: Female Ethnicity: White Date of : 1950 Indication: postmenopausal; screening for osteoporosis; inflammatory bowel disease; Referring Provider: CHET JONES Study: Bone densitometry was performed. Exam Date: March 16, 2025 Accession number: [id number] Bone Density: Region BMD T-score Z-score Classification AP Spine(L1-L4) 0.969 -0.7 1.6 Normal Femoral Neck (Left) 0.628 -2.0 0.0 Osteopenia Total Hip (Left) 0.791 -1.2 0.5 Osteopenia Femoral Neck (Right) 0.674 -1.6 0.4 Osteopenia Total Hip (Right) 0.802 -1.1 0.6 Osteopenia Total Hip Mean 0.797 -1.2 0.6 Osteopenia World Health Organization criteria for BMD impression classify patients as: Normal (T-score at or above -1.0), Osteopenia (T-score between -1.0 and -2.5), or Osteoporosis (T-score at or below -2.5). 10-year Fracture Risk(1): Major Osteoporotic Fracture 11% Hip Fracture 2.3% Reported Risk Factors: [place] (), Neck BMD=0.628, BMI=40.4 (1) FRAX(R) Version 3.08. Fracture probability calculated for an untreated patient. Fracture probability may be lower if the patient has received treatment. Previous Exams: -- Region Exam Age BMD T-score BMD Change BMD Change Date g/cm2 vs Baseline vs Previous -- AP Spine (L1-L4) 03/16/2025 74 0.969 -0.7 3.0%* -5.8%* 03/12/2023 72 1.028 -0.2 9.3%* 9.3%* 04/29/2019 68 0.941 -1.0 Total Hip(Left) 03/16/2025 74 0.791 -1.2 -3.8%* -9.4%* 03/12/2023 72 0.873 -0.6 6.1%* 6.1%* 04/29/2019 68 0.823 -1.0 Total Hip(Right) 03/16/2025 74 0.802 -1.1 -1.6%# -7.2%# 03/12/2023 72 0.865 -0.6 6.0%* 6.0%* 04/29/2019 68 0.816 -1.0 -- *Denotes significance at 95% confidence level, LSC for AP Spine = 0.022 g/cm2, LSC for Total Hip = 0.027 g/cm2 # Denotes dissimilar scan types or analysis methods Clinical Information Provided by Patient: Has used the following medications: Vitamin D, Calcium Has the following medical conditions: Inflammatory bowel diseases Patient maximum height was 64 Menopause Age: 48 No regular weight bearing exercise Drinks caffeinated beverages Onset of menses at age 15 Number of children 3 Missed period for more than 6 months in a row Impression: The patient has low bone mass, based on the Left Femoral Neck T-score. The patient has an estimated ten-year risk of hip fracture of 2.3% and an estimated ten-year risk of major fracture of 11%, based on the WHO FRAX algorithm. The BMD for the AP Spine (L1-L4) decreased, changing by -5.8% since the last DXA exam. The BMD for the Total Hip(Left) decreased, changing by -9.4% since the last DXA exam. Discussion: BONE DENSITY IS LOW AT ONE OR MORE SKELETAL SITES. This patient's lowest T-score is low at one or more skeletal sites. It meets the World Health Organization's (WHO) criteria for ?low bone mass? (T-score between -1.0 and -2.5). The patient's 10-year risk of fracture as calculated by FRAX is less than the threshold where pharmacological therapy is recommended by the National Osteoporosis Foundation (NOF). However, all treatment decisions require clinical judgment and consideration of individual patient factors, including patient preferences, comorbidities, previous drug use, risk factors not captured in the FRAX model (e.g., frailty, falls, vitamin D deficiency, increased bone turnover, interval significant decline in bone density) and possible under or overestimation of fracture risk by FRAX. The patient should follow a healthful lifestyle (good nutrition with adequate calcium and vitamin D, and appropriate weight-bearing exercise). Follow-Up: Consider repeating this study in 2 years to reassess this patient's status, or sooner if there is some new clinical indication. Reported by: ALAYNA on 03/16/2025 9:10:00 AM. Reviewed, dictated and finalized at location A.
== END 2025-03-16 08:46 | disposition home or self-care (01) ==
LOC: MICIMG 08:46
PROVIDERS: PCP Family Medicine; Visit Provider Student in an Organized Health Care Education/Training Program
DX: M85.89 Other specified disorders of bone density and structure, multiple sites (principal); Z78.0 Asymptomatic menopausal state; Z13.820 Encounter for screening for osteoporosis
CPT/HCPCS: 77080